=== PATIENT | female | born 1945 | race Caucasian/White ===

== ENCOUNTER 2019-04-13 12:26 | Emergency (ER) | payer OTHER ==
--- NOTE | 2019-04-13 12:29 | PDOC ---
History of Present Illness - General Stated Complaint: TIA Time Seen by Provider: 04/13/19 12:27 History Source: Patient Exam Limitations: No Limitations - History of Present Illness Initial Comments: 04/13/19 12:34 73y F hx of HL, hx of TIA (no residual weakness) on ASA 325 presents with brief episode of R facial weakness and R leg weakness. Patient with her in her usual state of health until approximately 1030 when she was trying to exit a vehicle and found that she was unable to move her right leg, she was also noted to have a little bit difficulty speaking and right facial weakness per family. This lasted for several minutes before resolving. Patient states the last couple days as well as this morning the patient was well without any complaints, the patient is back to baseline currently without any signs of weakness. She denies any associated headache, dizziness, palpitations, cp, vision changes, n/v , diaphoresis, recent uri, fever/chills,cough, sob, [place], leg swelling. pt denies Pt is travelling from [place] where she has all of her care. Past History - Past Medical History Allergies/Adverse Reactions: Allergies Allergy/AdvReac Type Severity Reaction Status Date / Time Sulfa (Sulfonamide Allergy Verified 04/13/19 12:28 Antibiotics) Home Medications: Ambulatory Orders Aspirin [ASA -] 325 mg PO DAILY 04/13/19 Atorvastatin Ca [Lipitor] 40 mg PO HS 04/13/19 Atorvastatin Calcium 80 mg PO DAILY #30 tablet 04/13/19 Calcium Carbonate/Vitamin D3 [Calcium 600 + Vit D Tablet] 1 each PO DAILY Clopidogrel Bisulfate [Plavix -] 75 mg PO DAILY #30 tablet 04/13/19 Famotidine [Pepcid] 20 mg PO DAILY 04/13/19 Multivitamins [Tab-A-Vit -] 1 tab PO DAILY 04/13/19 Review of Systems - Review of Systems Able to Perform ROS?: Yes Comments:: 04/13/19 12:45 Constitutional - no reported Fever, Chills, HEENT: no reported vision changes, sore throat Respiratory: no reported cough, sob, hemoptysis Cardiac: no reported chest pain, palpitations, light headedness, leg swelling Abd/GI: no reported abd pain, nausea, vomiting, blood per rectum, melena, diarrhea : no reported dysuria, frequency, discharge Musculskelatal - no reported back pain, joint swelling skin - no reported bruising, erythema, rash neurological: R facial droop/R leg weakness no reported headache, numbness, tingling, ataxia, hematologic: no reported easy bruising, easy bleeding *Physical Exam - Physical Exam 04/13/19 12:46 GENERAL: The patient is awake, alert, and fully oriented, Nontoxic - in no acute distress. HEAD: Normocephalic, atraumatic. EYES: extraocular movements intact, sclera anicteric, conjunctiva clear. ENT: Normal voice, Moist mucous membranes. NECK: Normal range of motion, supple LUNGS: Breath sounds equal, clear to auscultation bilaterally. No wheezes, no rhonchi, no rales. HEART: Regular rate and rhythm, normal S1 and S2 without murmur, rub or gallop. ABDOMEN: Soft, nontender, No guarding, no rebound. No CVA tenderness EXTREMITIES: Normal range of motion, no edema. NEUROLOGICAL: No facial assymetry, Normal speech, PSYCH: Normal mood, normal affect. SKIN: Warm, Dry, normal turgor, NEURO: Mental status: The patient is oriented x3. Cranial nerves: Very faint R facial weakness (chronic per family), EOMI, sensation intact, rest of CN intact Motor: The upper extremities are 5 over 5 in all muscle groups. The lower extremities are 5 over 5 in all muscle groups. Negative pronator drift Sensation: Sensation is intact to light touch throughout. romberg negative Cerebellar: Ibtids-hzfigy-ewjb is normal in both upper extremities. Heel-knee- castillo is normal in both lower extremities. rapid alternating movements are normal. NIH Stroke Scale - Last Known Well Date/Time & Onset Date Last Known Well: 04/13/19 Time Last Known Well: 10:30 - Initial Evaluation Level of consciousness: Alert Ask patient the month and their age: Answers both correctly Ask patient to open & close eyes; make fist and let go: Obeys both correctly Best gaze (horizontal eye movement): Normal Visual field testing: No visual field loss Facial paresis (Show teeth/raise eyebrows/close eyes tight): Minor paralysis ( flattened nasolabial fold, asymmetry on smiling) Motor Function: Left Arm: Normal Motor Function: Right Arm: Normal (extends arm 90 (or 45) degrees for 10 seconds without drift Motor Function: Left Leg: Normal (extends leg 30 degrees for 5 seconds without drift) Motor Function: Right Leg: Normal (extends leg 30 degrees for 5 seconds without drift) Limb Ataxia: No ataxia Sensory(Use pinprick test arms,legs,trunk,face/side to side): Normal Best language (Describe picture, name items, read sentences): No Aphasia Dysarthria (read several words): Normal articulation Extinction and Inattention: No abnormality - Total Score NIH Stroke Scale Score: 1 tPA Exclusion Checklist 0-3hr - Time Elapsed Date last known well: 04/13/19 Time last known well: 10:30 Elaspsed time: Day(s) and 4 Hour(s) and 39 Minutes - Thrombolytic Therapy Candidate Is the patient eligible for Thrombolytic Therapy?: No - Exclusion Criteria 0-3hr SBP greater than 185 or DBP greater than 110mmHg despite tx: No Recent IC/spinal surgery,head trauma or stroke w/in last 3mo: No Hx of previous IC hemorrhage, IC neoplasm, AVM or aneurysm: No Active internal bleeding: No Blding diathesis(low plt ct, inc PTT,INR>1.7 or use of NOAC): No Symptoms suggest subarachnoid hemorrhage: No CT demonstrates multilobar infarct(>1/3 cerebral hemiphere): No Arterial puncture at noncompressible site in previous 7 days: No Blood glucose concentration less than 50mg/dL (2.7mmol/L): No - Relative Exclusion Criteria 0-3h Rapid improvement: Yes - Ineligibility reason(s) Reasons No tPA given: See reason(s) noted above Critical Care Time/MDM Note - Medical Decision Making Note: 04/13/19 12:46 Differential includes possible TIA Code davis was initiated upon arrival CT head appears unremarkable Will obtain an MRI for further re-stratification 04/13/19 13:10 case clare Gaytan agree with management will obtain an MR of brain 04/13/19 14:43 pts brain MRI acte/subacute infarct in L case clare Gaytan, will come see the pt. 04/13/19 15:[address] gaytan bedside -r ecommends changing ASA to plavix 75mg, starting liptor 80mg and having pt fu with cardiology for loop monitor and outpatient workup. pt recently had a carotid duplex in early dec. will dc with outpatient management return precautions were discussed return to the emergency department immediately with ANY new, persistent or worsening symptoms. You MUST call and follow up with your doctor tomorrow for further evaluation of your symptoms. Results were discussed with you. Please make sure your doctor reviews the results of your emergency evaluation. Your Emergency Department visit is not complete without a follow up with your doctor. If you had any xrays during your visit, it was read preliminarily by myself, a Radiologist will review it and if there are any additional findings we will call you. Discharge - Discharge Information Problems reviewed: Yes Clinical Impression/Diagnosis: TIA (transient ischemic attack) Condition: Improved Disposition: HOME - Admission No - Follow up/Referral - Patient Discharge Instructions Patient Printed Discharge Instructions: DI for Transient Ischemic Attack Additional Instructions: Return to the emergency department immediately with ANY new or worsening symptoms including any focal weakness, changes in your mental status or other concerns. Your MRI results were included. Please follow up with your cardiolgist for further monitoring (loop monitor) for arrythmias. Dr. Mckee also recommends to stop taking your Aspirin and take plavix 75mg daily and Liptor 80mg daily. You MUST call and follow up with your doctor tomorrow for further evaluation of your symptoms. Results were discussed with you. Please make sure your doctor reviews the results of your emergency evaluation. Your Emergency Department visit is not complete without a follow up with your doctor. Print Language: FAROESE - Post Discharge Activity
[2019-04-13] MEDS ORDERED: SODIUM CHLORIDE 1,000 ML IV SCH (12:30)
[2019-04-13 12:32] VITALS: TEMP 97.8; BMI 25.7
[2019-04-13 12:37] LABS: BASO % 1.5 % (0-2.0); EOS % 5.4 % (0-4.5); HEMATOCRIT 37.8 % (32.4-45.2); HEMOGLOBIN 12.7 GM/dL (10.7-15.3); LYMPH % 34.9 % (8-40); MCH 33.8 pg (25.7-33.7); MCHC 33.7 g/dl (32.0-36.0); MEAN CELL VOLUME 100.5 fl (80-96); MEAN PLT VOLUME 7.5 fl (7.5-11.1); MONO % 8.1 % (3.8-10.2); NEUT % 50.1 % (42.8-82.8); PLATELET COUNT 242 K/MM3 (134-434); RBC 3.76 M/mm3 (3.60-5.2); RDW 13.1 % (11.6-15.6); WHITE BLOOD COUNT 3.7 K/mm3 (4.0-10.0)
[2019-04-13 12:48] LABS: INR 0.91 (0.83-1.09); PROTHROMBIN TIME (PATIENT) 10.7 SEC (9.7-13.0)
[2019-04-13 12:51] LABS: ACTIVATED PTT 32.5 SECONDS (25.2-36.5)
[2019-04-13 13:18] LABS: ALBUMIN 3.7 g/dl (3.4-5.0); BILIRUBIN,TOTAL 0.6 mg/dL (0.2-1); BLOOD UREA NITROGEN 10.2 mg/dL (7-18); CALCIUM 9.2 mg/dL (8.5-10.1); CREATININE 0.7 mg/dL (0.55-1.3); TOT PROT 6.4 g/dl (6.4-8.2)
[2019-04-13 14:39] LABS: URINE APPEARANCE CLEAR; URINE BILIRUBIN NEGATIVE (NEGATIVE); URINE COLOR YELLOW; URINE GLUCOSE (UA) NEGATIVE (NEGATIVE); URINE KETONE NEGATIVE (NEGATIVE); URINE LEUK ESTERASE NEGATIVE (NEGATIVE); URINE NITRITE NEGATIVE (NEGATIVE); URINE PROTEIN NEGATIVE (NEGATIVE); URINE UROBILINOGEN 0.2 mg/dL (0.2-1.0)
[2019-04-13 15:32] VITALS: BP 134/62; PULSE 79
--- NOTE | 2019-04-13 15:44 | CON.NEURO ---
Consult - Alcohol/Substance Use Hx Alcohol Use: No - Smoking History Smoking history: Never smoked Have you smoked in the past 12 months: No Home Medications - Allergies Allergies/Adverse Reactions: Allergies Allergy/AdvReac Type Severity Reaction Status Date / Time Sulfa (Sulfonamide Allergy Verified 04/13/19 12:28 Antibiotics) - Home Medications Home Medications: Ambulatory Orders Aspirin [ASA -] 325 mg PO DAILY 04/13/19 Atorvastatin Ca [Lipitor] 40 mg PO HS 04/13/19 Atorvastatin Calcium 80 mg PO DAILY #30 tablet 04/13/19 Calcium Carbonate/Vitamin D3 [Calcium 600 + Vit D Tablet] 1 each PO DAILY Clopidogrel Bisulfate [Plavix -] 75 mg PO DAILY #30 tablet 04/13/19 Famotidine [Pepcid] 20 mg PO DAILY 04/13/19 Multivitamins [Tab-A-Vit -] 1 tab PO DAILY 04/13/19 Physical Exam-Neuro Vital Signs: Vital Signs Temperature 97.8 F 04/13/19 12:29 Pulse Rate 78 04/13/19 12:57 Respiratory Rate 18 04/13/19 12:57 Blood Pressure 132/60 04/13/19 12:57 O2 Sat by Pulse Oximetry (%) 98 04/13/19 12:57 Labs: CBC, BMP 04/13/19 12:24 04/13/19 12:24 INR, PTT INR 0.91 (0.83-1.09) 04/13/19 12:24 Assessment/Plan cc Right facial and leg weakness HPI 73 year old female history of HLD, no diabetes, no hypertension. She has history of tia and was on aspirin and statin . Patient lives in [facility] and she was visiting daughter, who is ED doctor at [facility] . Patient has right facial and right leg weakness. Patient was in good health at 10.30 and she suddenly felt right leg waas week and also have difficulty speaking and family thought there was right facial weakness. Patient has symptoms resolved. Patient has ct head and it was unremarkable and mri showed there subacute stroke on left temporal and frontal lobe subacute stroke. Patient is back to normal and her blood pressure come down normal. She do not ahve any history of Atrial fibrillation. She has carotid ultrasound on march 27 and it as normal. PMH as above Allergies/Adverse Reactions: Allergies Allergy/AdvReac Type Severity Reaction Status Date / Time Sulfa (Sulfonamide Allergy Verified 04/13/19 12:28 Antibiotics) Home Medications: Aspirin [ASA -] 325 mg PO DAILY 04/13/19 Atorvastatin Ca [Lipitor] 40 mg PO HS 04/13/19 Atorvastatin Calcium 80 mg PO DAILY #30 tablet 04/13/19 Calcium Carbonate/Vitamin D3 [Calcium 600 + Vit D Tablet] 1 each PO DAILY Clopidogrel Bisulfate [Plavix -] 75 mg PO DAILY #30 tablet 04/13/19 Famotidine [Pepcid] 20 mg PO DAILY 04/13/19 Multivitamins [Tab-A-Vit -] 1 tab PO DAILY 04/13/19 NEUROLOGICAL EXAMINATION Alert oriented x 3, speech i snormal vss afebrile eomi, pupils reactive no face asymmetry moving all ext sensation is normal nih score is 0 , bp 134/62 Assessment/Plan TI, RISK factor HLD, and Previous stroke, MRI showed subacute left parietal and frontal lobe ischemic lesion , carotid ultrasound unremarkable Patient takes aspirin 325 mg once a day and lipitor 40 mg once a day Plan: suggest to increase lipitor to 80 mg once a day - plavix 75 mg once a day - watch for bp and neurological symptoms for 48-72 horus more carefully - life style modifications and stroke education - program director/traffic director consultation for possible loop recording as outpatient Thanking you so much Moises Mckee MD
--- NOTE | 2019-04-14 10:16 | EKG ---
Test Reason : Blood Pressure : / mmHG Vent. Rate : 083 BPM Atrial Rate : 083 BPM P-R Int : 148 ms QRS Dur : 080 ms QT Int : 394 ms P-R-T Axes : 034 030 023 degrees QTc Int : 462 ms POOR DATA QUALITY, INTERPRETATION MAY BE ADVERSELY AFFECTED NORMAL SINUS RHYTHM NORMAL ECG NO PREVIOUS ECGS AVAILABLE Confirmed by Eleazar Tamayo MD ([id number]) on 04/14/2019 10:16:22 AM Referred By: Confirmed By:Eleazar Tamayo MD
== END 2019-04-13 15:32 | disposition home or self-care (01) ==
LOC: JER 12:26
DX: G45.9 Transient cerebral ischemic attack, unspecified (principal); E78.5 Hyperlipidemia, unspecified; Z79.82 Long term (current) use of aspirin; Z88.2 Allergy status to sulfonamides
CPT/HCPCS: 36415; 70450-TC; 70551-TC; 80053; 81003; 82465; 82550; 82553; 83718; 83721; 84478; 84484; 85025; 85610; 85730; 86850; 86900; 86901; 93005; 93010; 99285-25; J7030